=== PATIENT | male | born 1980 | race Caucasian/White ===

== ENCOUNTER 2023-08-06 17:48 | Emergency (ER) | payer OTHER ==
[~2023-08-06] VITALS: Ht 180.3 cm; Wt 115.8 kg
[2023-08-06 18:04] VITALS: BP 117/92; PULSE 84; RESP 20; TEMP 97.7; O2SAT 96
== END 2023-08-06 19:15 | disposition home or self-care (01) ==
LOC: MED 17:48
DX: S50.11XA Contusion of right forearm, initial encounter (principal); M79.621 Pain in right upper arm; X58.XXXA Exposure to other specified factors, initial encounter; Y92.89 Other specified places as the place of occurrence of the external cause; Y93.89 Activity, other specified; Y99.8 Other external cause status
CPT/HCPCS: 99281